=== PATIENT | female | born 1980 | race Two or more races ===

== ENCOUNTER 2025-04-18 09:18 | Emergency (ER) | payer OTHER ==
[~2025-04-18] VITALS: Ht 167.6 cm; Wt 139.3 kg
[2025-04-18] MEDS ORDERED: LEXAPRO5 MG PO (09:46)
[2025-04-18] MEDS ORDERED: ZEPBOUND2.5 MG/0.5 SQ (09:47)
[2025-04-18] MEDS ORDERED: IBU600 MG PO (12:20)
== END 2025-04-18 15:06 | disposition home or self-care (01) ==
LOC: ER 09:19
DX: M25.571 Pain in right ankle and joints of right foot (principal)